=== PATIENT | female | born 1960 | race Caucasian/White ===

== ENCOUNTER 2020-06-14 22:17 | Emergency (ER) | payer OTHER ==
[2020-06-14 23:56] LABS: ANION GAP 11.9 mEq/L (7-13); CHLORIDE,CL 105 mmol/L (98-107); SODIUM,NA 140 mmol/L (136-145)
--- NOTE | 2020-06-15 01:07 | CR ---
PROCEDURE INFORMATION: Exam: XR Right Ribs with PA Chest, 3 Views Exam date and time: 06/15/2020 12:09 AM Age: 60 years old Clinical indication: Other: Right rib and ruq pain TECHNIQUE: Imaging protocol: XR Right ribs 3 views with PA chest. COMPARISON: No relevant prior studies available. FINDINGS: Lungs: Unremarkable. No consolidation. Pleural space: Unremarkable. No pleural effusion. No pneumothorax. Heart/Mediastinum: Unremarkable. No cardiomegaly. Bones/joints: Unremarkable. IMPRESSION: No acute findings.
--- NOTE | 2020-06-15 01:12 | EDM.PDOC ---
ED HPI GENERAL MEDICAL PROBLEM - General Chief Complaint: Abdominal Pain Stated Complaint: CHEST PAIN RIGHT SIDE Time Seen by Provider: 06/14/20 22:30 Source of Information: Reports: Patient History Limitations: Reports: No Limitations - History of Present Illness INITIAL COMMENTS - FREE TEXT/NARRATIVE: ED with c/o intermittent sharp stabbing pain to right upper chest tonight. Worried blood clot. 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 Also diagnosed with renal mass at same time. Ate eggs and mashed potatoes with butter tonight., pain started after. Lack of appetite past month, Has Rx for hydro and zofran but has not picked up from pharmacy. No vomiting. no fever, No cough or SOB. Right Upper Abdomen Pain Score (Numeric/FACES): 8 - Related Data Allergies Allergy/AdvReac Type Severity Reaction Status Date / Time minocycline Allergy Cannot Verified 06/14/20 22:32 Remember Home Meds: Home Meds LORazepam 0.5 mg PO ASDIRECTED PRN 05/16/18 [History] Past Medical History HEENT History: Reports: Impaired Vision Cardiovascular History: Reports: None Respiratory History: Reports: None Genitourinary History: Reports: Other (See Below) Other Genitourinary History: mass to right kidney [employer] History: Reports: Musculoskeletal History: Reports: None Neurological History: Reports: None Psychiatric History: Reports: Anxiety Endocrine/Metabolic History: Reports: Osteopenia Hematologic History: Reports: None Oncologic (Cancer) History: Reports: Thyroid - Infectious Disease History Infectious Disease History: Reports: Chicken Pox - Past Surgical History HEENT Surgical History: Reports: None GI Surgical History: Reports: Bariatric Procedure, Colonoscopy, Other (See Below) Other GI Surgeries/Procedures: Gastric Bypass Endocrine Surgical History: Reports: Thyroid Biopsy, Thyroidectomy Other Endocrine Surgeries/Procedures: 1/2 of thyroid removed. Oncologic Surgical History: Reports: Other (See Below) Other Oncologic Surgeries/Procedures: PARTIAL THYRIODECTOMY Social & Family History - Family History Family Medical History: No Pertinent Family History - Tobacco Use Tobacco Use Status *Q: Current Every Day Tobacco User Years of Tobacco use: 30 Packs/Tins Daily: 1 - Caffeine Use Caffeine Use: Reports: Coffee Other Caffeine Use: "LOTS" - Recreational Drug Use Recreational Drug Use: No ED ROS GENERAL - Review of Systems Review Of Systems: Comprehensive ROS is negative, except as noted in HPI. ED EXAM, GI/ABD - Physical Exam Exam: See Below Exam Limited By: No Limitations General Appearance: Alert, Anxious, Mild Distress Eyes: Bilateral: EOMI Ears: Normal External Exam, Normal TMs Nose: Normal Inspection Throat/Mouth: Normal Inspection, No Airway Compromise, Inflammation Head: Atraumatic, Normocephalic Neck: Normal Inspection, Full Range of Motion Respiratory/Chest: No Respiratory Distress, Lungs Clear, Normal Breath Sounds, Other (point tenderness right lower chest ) Cardiovascular: Normal Peripheral Pulses, Regular Rate, Rhythm GI/Abdominal Exam: Normal Bowel Sounds, Soft Back Exam: Full Range of Motion, Paraspinal Tenderness (right thoracic) Extremities: Normal Inspection Neurological: Alert, Oriented, Normal Cognition, No Motor/Sensory Deficits Psychiatric: Anxious Skin Exam: Warm, Dry, Intact, Normal Color, No Rash Course - Vital Signs Last Recorded V/S: Last Vital Signs Temp 98.8 F 06/14/20 22:26 Pulse 75 06/14/20 22:26 Resp 16 06/14/20 22:26 BP Pulse Ox 98 06/14/20 22:26 - Orders/Labs/Meds Labs: Laboratory Tests 06/14/20 06/14/20 06/14/20 Range/Units 23:27 23:27 23:27 WBC 5.8 (5.0-10.0) 10^3/uL RBC 3.84 L (4.2-5.4) 10^6/uL Hgb 11.2 L D (12.0-16.0) g/dL Hct 35.5 L (37.0-47.0) % MCV 92.4 (80-100) fL MCH 29.2 (27.0-34.0) pg MCHC 31.5 L (33.0-35.0) g/dL Plt Count 238 (150-450) 10^3/uL Neut % (Auto) 51.7 (42.2-75.2) % Lymph % (Auto) 36.8 (20.5-50.1) % Gosper % (Auto) 9.4 H (2-8) % Eos % (Auto) 1.4 (1.0-3.0) % Baso % (Auto) 0.7 (0.0-1.0) % D-Dimer, Quantitative 129 (0-400) ng/mL Sodium 140 (136-145) mmol/L Potassium 3.9 (3.5-5.1) mmol/L Chloride 105 (98-107) mmol/L Carbon Dioxide 27 (21-32) mmol/L Anion Gap 11.9 (7-13) mEq/L BUN 8 (7-18) mg/dL Creatinine 0.78 (0.55-1.02) mg/dL Est Cr Clr Drug Dosing 64.24 mL/min Estimated GFR (MDRD) > 60 BUN/Creatinine Ratio 10.3 (No establ ref range) Glucose 90 (74-99) mg/dL Calcium 8.6 (8.5-10.1) mg/dL Total Bilirubin 0.2 (0.2-1.0) mg/dL AST 12 L (15-37) U/L ALT 15 (14-59) U/L Alkaline Phosphatase 73 (46-116) U/L Total Protein 6.3 L (6.4-8.2) g/dL Albumin 3.5 (3.4-5.0) g/dL Globulin 2.8 Albumin/Globulin Ratio 1.2 Amylase 57 (25-115) U/L Departure - Departure Time of Disposition: :08 Disposition: Home, Self-Care 01 Condition: Good Clinical Impression: Colicky right upper quadrant pain - Discharge Information *PRESCRIPTION DRUG MONITORING PROGRAM REVIEWED*: No *COPY OF PRESCRIPTION DRUG MONITORING REPORT IN PATIENT RAIN: No Instructions: Abdominal Pain, Adult, [id number] Referrals: Rosy Knapp [employer] [Primary Care Provider] - Forms: ED Department Discharge Additional Instructions: light low fat diet follow up with primary care tylenol 650mg every 4 hours as needed urgent follow up if pain worsening, fever and or breathing difficulty Sepsis Event Note (ED) - Evaluation Sepsis Screening Result: No Definite Risk
== END 2020-06-15 01:15 | disposition home or self-care (01) ==
LOC: DL.ED 22:17
DX: R10.11 Right upper quadrant pain (principal); F17.210 Nicotine dependence, cigarettes, uncomplicated; Z88.1 Allergy status to other antibiotic agents
CPT/HCPCS: 36415; 71101-RT; 80053; 82150; 85025; 85379; 93005; 99284-25

== ENCOUNTER 2024-03-16 09:59 | Emergency (ER) | payer BC ==
[2024-03-16] MEDS: Lidocaine/Prilocaine 2.5-2.5% Crm 5 GM Tube TOP ONE (10:29)
[2024-03-16] MEDS: Lidocaine 1% 5 ML VIAL INJECT ONE (10:30)
[2024-03-16] MEDS: HYDROmorphone 1 MG/ML Syringe IM ONE (11:05)
[2024-03-16] MEDS: HYDROmorphone 1 MG/ML Syringe ONE (11:06)
[2024-03-16] MEDS: Sulfamethoxazole/Trimethoprim 800-160 MG Tab PO ONE (11:34)
[2024-03-16] MEDS: Take Home: Sulfamethoxazole/Trimethoprim 800-160 MG Tab, 6 Tab Pack PO ONE (11:34)
[2024-03-16] MEDS: Take Home: traMADol 50 MG, 4 Tab Pack PO ONE (11:34)
== END 2024-03-16 11:45 | disposition home or self-care (01) ==
LOC: DL.ED 09:59
DX: L02.221 Furuncle of abdominal wall (principal); Z88.8 Allergy status to other drugs, medicaments and biological substances; Z90.49 Acquired absence of other specified parts of digestive tract
CPT/HCPCS: 10060; 87070; 96372; 99283; A9270; J1170; J3490